=== PATIENT | female | born 1930 | race Caucasian/White ===

== ENCOUNTER 2020-01-22 05:07 | Inpatient (IN) | payer OTHER ==
[~2020-01-22] VITALS: Ht 160 cm; Wt 70.0 kg
[2020-01-22 05:08] VITALS: BP 77/52
[2020-01-22 05:27] LABS: ABSOLUTE NEUTROPHILS 9.9 thou/uL (1.4-8.2); BASOPHILS 0.4 % (0.0-2.0); HEMATOCRIT 39.5 % (37.0-47.0); LYMPHOCYTES 3.5 % (24.0-44.0); MCV 87.9 fL (80.0-100.0); MONOCYTES 6.1 % (1.0-8.0); PLATELET COUNT 222 thou/uL (150-400); RDW 14.3 % (10.5-14.5)
[2020-01-22 05:45] LABS: URINE BLOOD 1+ (Negative); URINE CLARITY CLOUDY; URINE COLOR YELLOW; URINE GLUCOSE-RANDOM* NEGATIVE (Negative); URINE KETONES TRACE (Negative); URINE NITRITE-REFLEX NEGATIVE (Negative); URINE PROTEIN (DIPSTICK) 2+ (Negative); URINE SPECIFIC GRAVITY >= 1.030 (1.005-1.035)
[2020-01-22 05:47] LABS: CALCIUM 8.7 mg/dL (8.5-10.1); CREATININE 1.8 mg/dL (0.6-1.0); POTASSIUM 3.5 mmol/L (3.5-5.1)
[2020-01-22 05:53] LABS: ALBUMIN 2.7 g/dL (3.4-5.0); DIRECT BILIRUBIN 0.5 mg/dL (<0.1-0.2); TOTAL BILIRUBIN 0.9 mg/dL (0.2-1.0); TOTAL PROTEIN 6.5 g/dL (6.4-8.2)
[2020-01-22 06:02] LABS: URINE LEUKOCYTES-REFLEX 2+ (Negative)
[2020-01-22 06:03] LABS: ICTOTEST (BILI CONFIRMATORY) ND (Negative)
[2020-01-22 06:04] LABS: URINE BILIRUBIN 2+ (Negative)
[2020-01-22] MEDS ORDERED: VITAMIN D32400 UNIT/ PO (06:08)
[2020-01-22 06:11] LABS: BACTERIA-REFLEX >30 Many /HPF (None Seen); CASTS None Seen /LPF (None Seen); SQUAMOUS 4-10 Moderate /LPF (0-3); URINE WBC-REFLEX >25 Many /HPF (0-5)
[2020-01-22 06:12] LABS: CRYSTALS None Seen /LPF (None Seen); URINE RBC 0-2 Rare /HPF (0-2); WBC CLUMPS Packed (None Seen)
--- NOTE | 2020-01-22 07:26 | EKG ---
[facility] [place] [facility] [place] [address] ELECTROCARDIOGRAM REPORT Name: CARLOS VALVERDERoxi Coto Room #: REG [facility]#: [id number] Admission: 01/22/20 Attend Phys: Discharge: Date of : [birth year] Report #: [id number] THIS REPORT FOR: cc: Lawanda Smith MD, Ramilo MD Santiago,Allen [facility] ~ THIS REPORT FOR: //name// [facility] [place] [facility] ED Test Date: 2020-01-22 Test Time: 05:31:20 Pat Name: ZECHARIAH VALVERDE Department: Room: Gender: F Stationary Engineer: [place] [id number] : 1930 Requested By: Renetta Nielsen Order Number: [id number] MD: Allen Abad Measurements Intervals [place] Rate: 87 P: -17 TN: 171 QRS: -23 QRSD: 106 T: 18 QT: 396 QTc: 477 Interpretive Statements Sinus rhythm Atrial premature complex Borderline left axis deviation Borderline low voltage, extremity leads Borderline repolarization abnormality No previous ECG available for comparison Electronically Signed On 01-22-2020 7:25:59 PROMOTIONAL REPRESENTATIVE by Allen Abad [email or web address] <ELECTRONICALLY SIGNED> By: Allen Abad MD, FACC 01/22/20 0725 0 0 Allen Abad MD, FAC /EPI
[2020-01-22 07:53] LABS: LARGE PLATELETS FEW; PLATELET ESTIMATE NORMAL
[2020-01-22 10:17] LABS: TSH 4.138 uIU/mL (0.358-3.740)
[2020-01-22 10:49] LABS: FOLIC ACID 21.8 ng/mL (8.6-58.9)
[2020-01-22 17:25] VITALS: BP 114/70
--- NOTE | 2020-01-23 04:49 | NUR ---
Talked with pretty Pantoja to update her regarding status of pt
[2020-01-23 05:49] LABS: ABSOLUTE NEUTROPHILS 7.9 thou/uL (1.4-8.2); BASOPHILS 0.1 % (0.0-2.0); HEMATOCRIT 34.9 % (37.0-47.0); HEMOGLOBIN 11.5 gm/dL (12.0-15.0); LYMPHOCYTES 5.8 % (24.0-44.0); MCH 29.1 pg (26.0-34.0); MCV 88.3 fL (80.0-100.0); MONOCYTES 4.6 % (1.0-8.0); PLATELET COUNT 155 thou/uL (150-400); POLYS 89.5 % (36.0-66.0); RBC 3.96 mil/uL (4.20-5.00); RDW 14.4 % (10.5-14.5); WBC 8.9 thou/uL (4.0-11.0)
[2020-01-23 06:11] LABS: CALCIUM 8.4 mg/dL (8.5-10.1); CREATININE 1.1 mg/dL (0.6-1.0); MAGNESIUM 1.9 mg/dL (1.8-2.4); POTASSIUM 3.5 mmol/L (3.5-5.1)
[2020-01-23 16:16] VITALS: BP 130/74
[2020-01-23 16:36] VITALS: BP 137/74
[2020-01-23 17:38] VITALS: BP 104/65
--- NOTE | 2020-01-23 19:03 | NUR ---
PATIENT ADMITTED TO UNITT A THIS TIME. SHE IS CONFUSED AND OBSESSED WITH SOMEONE FINDIND HER CANE. EASILY REDIRECTED. KEEPS TAKING OFF TELE STRIPS. WILL CONT WITH PLAN OF CARE.
[2020-01-23 20:25] VITALS: BP 111/67
[2020-01-24 00:33] VITALS: BP 112/74
[2020-01-24 05:15] VITALS: BP 138/83
--- NOTE | 2020-01-24 06:37 | NUR ---
PT REMOVED TELE MULTIPLE TIMES OVERNIGHT. PT ALSO REMOVED IV'S OVERNIGHT. REPLACED IV AND TELE PATCHES AND CABLES. PT WAS PLACED IN RESTRAINTS DUE TO REMOVING MONITORING EQUIPMENT AND IV'S FOR SAFETY REASONS. INTERVENTIONS AND DOCUMENTATION COMPLETED. PT STATES SHE WANTS TO GO BACK TO HER ROOM AT [facility]. NO OTHER ISSUES AND POC IN PLACE WITH IVF/IVPB.
[2020-01-24 08:32] VITALS: BP 120/80
[2020-01-24 08:53] LABS: HEMOGLOBIN 13.2 gm/dL (12.0-15.0); MCH 28.5 pg (26.0-34.0); MCHC 32.1 g/dL (28.0-37.0); MCV 88.8 fL (80.0-100.0); RBC 4.62 mil/uL (4.20-5.00); WBC 12.8 thou/uL (4.0-11.0)
[2020-01-24 09:14] LABS: CALCIUM 9.3 mg/dL (8.5-10.1); CREATININE 1.2 mg/dL (0.6-1.0); POTASSIUM 3.7 mmol/L (3.5-5.1)
[2020-01-24 10:21] LABS: ALBUMIN 2.9 g/dL (3.4-5.0); DIRECT BILIRUBIN 0.3 mg/dL (<0.1-0.2); TOTAL BILIRUBIN 0.5 mg/dL (0.2-1.0)
[2020-01-24 12:14] VITALS: BP 106/68
--- NOTE | 2020-01-24 13:13 | NUR ---
Patient admits from [facility] post [facility]. Patient also COVID positive. Facility and family aware. Patient is ltc resident of [facility]. Sp with family who reports patient likely will need rehab/skilled care upon dc. Patient with some confusion. Family aware. Discussed with [facility] may not be in network with [facility] for post acute care.
[2020-01-24 16:46] VITALS: BP 118/80
--- NOTE | 2020-01-24 19:07 | NUR ---
ASSUMED PATIENT CARE AT 0700. ALERT TO SELF. CONFUSED, OFF RESTRAINT AT 1000. VSS. AFEBRILE. SOLWLY TOWARDS POC GOALS.
[2020-01-24 19:40] VITALS: BP 111/64
--- NOTE | 2020-01-24 23:13 | NUR ---
PT RESTLESS PULLING ON GOWN, SHEETS TELE BOX. KICKING LEGS, REPOSITIONING IN BED. PROVIDER CALLED AND PRN PROVIDED. PTS IV INFILTRATED. TWO ATTEMPTS BY NURSE NOT SUCCESSFUL. PROVIDER NOTIFIED. WILL HAVE OTHER STAFF ATTEMPT RESTART. PT RECIEVED PRN HALDOL AND LOVENOX. PT ASKING TO TAKE THE CAR OUT. PT HAS INCREASED RR BUT IS ABLE TO BE VERBALLY REDIRECTED TO RELAX AND SLOW BREATHING. O2 SAT 98 AND 94%. BED ALARM ON. PT REMAINS INCONTINENT OF URINE.
--- NOTE | 2020-01-25 01:18 | NUR ---
PT RESTLESS ROLLING SIDE TO SIDE IN BED KICKING HER LEGS, PULLING ON SHEETS AND GOWN. TELE MONITOR PLACED ON PTS BACK SINCE SHE REMOVED IT 3 TIMES AT THE BEGINNING OF THE SHIFT.
--- NOTE | 2020-01-25 02:46 | NUR ---
PT CONTINUES TO ASK FOR ADDITIONAL MEDICATION TO ASSIST WITH HER SLEEPING. PROVIDER UPDATED.
[2020-01-25 06:09] LABS: ALBUMIN 2.6 g/dL (3.4-5.0); CALCIUM 9.3 mg/dL (8.5-10.1); CREATININE 1.1 mg/dL (0.6-1.0); DIRECT BILIRUBIN 0.2 mg/dL (<0.1-0.2); PHOSPHORUS 2.5 mg/dL (2.5-4.9); POTASSIUM 3.5 mmol/L (3.5-5.1); TOTAL BILIRUBIN 0.6 mg/dL (0.2-1.0)
--- NOTE | 2020-01-25 06:19 | NUR ---
PT WAS SATURATING 86% WITH BIPAP ON WHILE ASLEEP. PT AWAKENED, ENCOURAGED TO SIT UP ENGAGED WITH STAFF AND SATURATION INCREASED TO 95%. RESPIRATORY UPDATED.
[2020-01-25 07:39] VITALS: BP 136/66
[2020-01-25 10:58] VITALS: BP 118/73
--- NOTE | 2020-01-25 11:59 | HC ---
[facility] [place] [address] CONSULTATION Name: ZECHARIAH VALVERDE Room #: 352-P ADM IN M.R.#: [id number] Admission: 01/22/20 Attend Phys: Benjy Huffman MD Discharge: Date of : [birth year] Report #: [id number] THIS REPORT FOR: cc: Lawanda Smith MD, Ramilo MD Barry,Reid Barron MD ~ DATE OF SERVICE: 01/23/2020 INFECTIOUS DISEASE CONSULTATION ATTENDING PHYSICIAN: Dr. Huffman. REASON FOR EVALUATION: Complicated urinary tract infection. COVID positive. HISTORY OF SUBJECTIVE: Chart reviewed, the patient examined. This is an 89-year-old with very limited medical history, although it certainly raises question of some early dementia, who apparently fell out of her bed at some point while in the facility overnight, was brought to the Emergency Room. She had marked pyuria on urinalysis. CPK was elevated. Initial COVID antigen testing was negative; however, the PCR was positive and the chest x-ray showed ground-glass. CT of the head was otherwise unremarkable. She is unable to give too much details of history. She is quite confused at this point. She was found to be borderline hypoxemic; however, refuses to wear supplemental oxygen at this point. ALLERGIES: None known. MEDICATIONS: Currently include cyanocobalamin, vancomycin, famotidine, heparin, Zosyn, methylprednisolone, acetaminophen, p.r.n. ondansetron. PAST MEDICAL HISTORY: History of reflux, osteoarthritis, apparently history of varicella zoster as well. SOCIAL HISTORY: Uncertain. FAMILY HISTORY: Not available. REVIEW OF SYSTEMS: Not reliably obtained. PHYSICAL EXAMINATION: GENERAL: She is trying to get out of bed. She is quite confused. She appears somewhat chronically ill and undernourished. She is in gzgn-my-xtrrviaj distress. VITAL SIGNS: Temperature 99, pulse 62, respirations 19, blood pressure 114/66. [facility] [address] [place] [address] CONSULTATION Name: ZECHARIAH VALVERDE Room #: [address] [place] [address]#: [id number] Admission: 01/22/20 Attend Phys: Benjy Huffman MD Discharge: Date of : [birth year] Report #: [id number] Reportedly, saturations 89-90% on room air. HEENT: Normocephalic. Extraocular muscles intact. NECK: Supple. LUNGS: Few scattered coarse breath sounds. HEART: Regular. Borderline bradycardic. I do not appreciate a murmur. ABDOMEN: Soft, nontender, nondistended. EXTREMITIES: No cyanosis. GENITOURINARY AND RECTAL: Deferred. LABORATORY DATA: Initial electrolytes, sodium 137, potassium 3.5, chloride 102, bicarbonate is 22, anion gap of 13, BUN and creatinine 19 and 1.8, glucose of 119. LFTs borderline elevated AST of 42, ALT of 18, albumin of 2.7, total protein 62.5. CPK total of 467. Chest x-ray, peripheral ground-glass opacities present throughout the entire right lung and left upper lobe. Urinalysis, marked pyuria with greater than 25 white cells. Lactic acid of 2.8 initially, repeat was 1.7. Procalcitonin 0.24. Initial coronavirus antigen was negative. PCR positive. Vitamin D 25-hydroxy total was 46.2, in the normal range of 3200. Blood cultures sterile thus far. Urine culture with growth of greater than 10-30 gram-negative rods identified as Escherichia coli. ASSESSMENT AND PLAN: Complicated urinary tract infection and certainly it could explain a lot of her encephalopathy. Zosyn should give this reasonable coverage. We will await final susceptibilities. Also secondly, has pneumonitis again with a positive COVID PCR. I think given the borderline hypoxemia certainly at very tenuous at this point. We will start her on corticosteroids. We will start remdesivir and complete the planned 5-day course. Repeat creatinine was 1.1. Continue efforts to support with supplemental oxygen and see how she does clinically over the next 24-48 hours. Again, discussed with Dr. Zacarias. <ELECTRONICALLY SIGNED> By: Reid Nieves MD 01/25/20 1159 [id number] [id number] Reid Nieves MD /nt
--- NOTE | 2020-01-25 15:04 | NUR ---
NELLY reviewed chart and spoke with nursing and attending physician. Pt remains in Enhanced Isolation due to COVID-19. Pt is afebrile and not on O2. Pt is on IV abx and IV steroids. Pt is completing course of Remdesivir. NELLY faxed clinical/therapy updates to [facility] for review. No weekend discharge planned. Will need insurance authorization for post-acute placement. NELLY is following to assist as needed with discharge planning.
[2020-01-25 15:12] VITALS: BP 120/77
--- NOTE | 2020-01-25 17:48 | NUR ---
ASSUMED PATIENT CARE AT 0700. ALERT TO SELF. STARTED RESTLESS AFTER 5PM. REFUSED EAT ALL DAY. MAX ASSISTED. INCONTINUE URINE AND BM. VSS, AFEBRILR. NOT TOWARDS POC GOALS.
[2020-01-25 20:32] VITALS: BP 96/61
--- NOTE | 2020-01-26 01:10 | NUR ---
PT RESTING IN BED. LUNGS DIMINISHED, REMAINS INCONTINENT. BED ALARM ON. PT REPORTED TO NOT EAT ON DAY SHIFT. PT NOT RESISTIVE TO CARES THIS EVENING.
[2020-01-26 05:00] VITALS: BP 100/65
[2020-01-26 08:52] VITALS: BP 100/73
[2020-01-26 08:54] LABS: ALBUMIN 2.4 g/dL (3.4-5.0); CALCIUM 8.1 mg/dL (8.5-10.1); DIRECT BILIRUBIN 0.3 mg/dL (<0.1-0.2); PHOSPHORUS 2.6 mg/dL (2.5-4.9); POTASSIUM 3.6 mmol/L (3.5-5.1); TOTAL BILIRUBIN 0.6 mg/dL (0.2-1.0); TOTAL PROTEIN 5.6 g/dL (6.4-8.2)
[2020-01-26 16:41] VITALS: BP 121/81
[2020-01-26 19:11] VITALS: BP 111/73
--- NOTE | 2020-01-26 23:43 | NUR ---
PT RESTING IN BED. [facility] CONTACT. PT ANSWERS DIRECT QUESTIONS WITH ONE OR TWO WORDS. PT DECLINED WANTING TO WATCH TV. PT COMPLIANT WITH MEDS. PT OFFERED SNACK AND DECLINED STATING SHE DID NOT WANT ANY. DISCUSSED WITH PT THE NEED FOR NUTRITION TO REMAIN LIVING. PT SHOOK HER HEAD YES WHEN ASKED IF SHE WAS READY TO . LUNGS WHEEZE IN BASE, PALE SKIN TONE, BLE EDEMA. BED ALARM ON.
[2020-01-27 04:24] VITALS: BP 111/68
[2020-01-27 07:46] VITALS: BP 112/73
[2020-01-27 11:16] LABS: ALBUMIN 2.6 g/dL (3.4-5.0); DIRECT BILIRUBIN 0.4 mg/dL (<0.1-0.2); TOTAL BILIRUBIN 0.8 mg/dL (0.2-1.0)
[2020-01-27 16:04] VITALS: BP 123/78
--- NOTE | 2020-01-27 18:02 | NUR ---
ASSUMED CARE OF PT AT SHIFT CHANGE. ASSESSMENT CHARTED. MEDS GIVEN PER MAR WITH PUDDING. PT A&OX4, NO C/O PAIN OR SOA. DIET UPGRADED TO CLEAR LIQUIDS PT IS MORE ALERT. RESTRAINTS DC'D, COMPLIANT WITH MOST INSTRUCTIONS. INCONTINENT WITH TWO LOOSE STOOLS. WILL CONTINUE TO MONITOR AND FOLLOW POC.
[2020-01-27 20:24] VITALS: BP 118/74
--- NOTE | 2020-01-28 02:12 | NUR ---
PT RESTING IN BED. LUNGS DIMINSHED, BLE ANKLE EDEMA. REMAINS INCONTINENT B&B. COMPLIANT WITH MEDS. DECLINING FLUIDS. [facility] CONTACT, SIMPLE STATEMENT INTERACTIONS.
[2020-01-28 03:49] VITALS: BP 125/79
[2020-01-28 07:39] VITALS: BP 122/75
[2020-01-28] MEDS ORDERED: CEFDINIR300 MG PO (09:45)
[2020-01-28 11:22] VITALS: BP 105/68
[2020-01-28 15:19] VITALS: BP 95/58
--- NOTE | 2020-01-28 15:43 | NUR ---
PRIMETIME ROUNDS: VALENTÍN, DIRECTOR, WILL HAVE YADIRA CANDELARIO, SUBMIT FOR AUTH SINCE PT HAS [employer].
--- NOTE | 2020-01-28 18:23 | NUR ---
PT ORIENTED TO SELF, SLIGHT HABEMATOLEL, PROB RELATED TO MASKED SOUNDS, ATE ALL OF MAGIC PUDDING AND MOST OF BREAKFAST, VERY PLEASANT, INCONTINENT ONCE TODAY, PT AND LINENS CHANGED, BLADDER SCAN AT 1700 SHOWED 300CC RETAINED, PT DECLINED TRYING TO SIT ON BSC STATING, "I DON'T WANT TO TRY RIGHT NOW."
[2020-01-28 19:51] VITALS: BP 96/64
--- NOTE | 2020-01-29 07:32 | NUR ---
ASSUMED PT CARE AROUND 1930. AXOX1. FOLLOWS SIMPLE COMMANDS. VSS. UA SAMPLES REMAINS UNCOLLECTED PER AD OPERATIONS INTERN NOT TO STRAIGHT CATH HER D/T HER INCONTINENCE. TO CHECK WITH ATTENDING IF HE WANTS SAMPLE FROM STRAIGHT CATH. ENDORSED TO AM RN. NO S/S ACUTE DISTRESS NOTED OR REPORTED AT THIS TIME. CARE TRANSFERRED TO AM RN.
[2020-01-29 07:43] VITALS: BP 103/61
[2020-01-29 11:31] VITALS: BP 106/69
--- NOTE | 2020-01-29 11:47 | NUR ---
PT ALERT AND ORIENTED TIMES TWO. VSS. PT DENIES PAIN/SOA. PT TOLERATES MEDS AND MEALS. PLANS TO DISCHARGE TODAY. PT PRORESSING TOWRADS POC GOALS.
--- NOTE | 2020-01-29 14:00 | NUR ---
NELLY reviewed chart and spoke with nursing. Pt remains in Enhanced Isolation due to COVID-19. Pt is afebrile and not requiring O2. Pt is medically stable for discharge back to [facility] pending insurance authorization. NELLY discussed case with aashish. Info has not yet been submitted to [facility] for SNF authorization. product planner to fax info to [facility] and [facility]. NELLY spoke with pt's family, Cammy and Scarlett, to provide update and discuss discharge plan. Per Scarlett, pt will likely not participate with therapy. They prefer pt returns to [facility] as manager intermediate care with restorative therapy. [facility] is also not in-netowrk with pt's insurance. Pt would have to go to an alternate facility for skilled services. Pt's family would like for pt to return to [facility] and not have to go to an alternate facility. Pt's family wanted to know if pt will be retested for COVID prior to discharge and if not, why not. Pt's family also wanted to know if pt will have to be in isolation when she returns to the facility. NELLY left voice message for Delles in admissions at [facility]. Chart copy requested. NELLY is following to assist as needed with discharge planning.
[2020-01-29 15:26] VITALS: BP 117/72
--- NOTE | 2020-01-29 16:28 | NUR ---
FAXED REFERRAL TO [facility] RECEIVED CONFIRMATION AND LEFT MSG WITH ANKITA IN ADM. ALSO FAXED REFERRAL TO [facility] FOR AUTH RECEIVED CONFIRMATION. DP TO FOLLOW.
[2020-01-29 19:13] VITALS: BP 113/74
[2020-01-29 19:40] VITALS: BP 123/72
--- NOTE | 2020-01-29 21:15 | NUR ---
PT AWAKE ALERT RESTING IN BED, DECLINED WANTING TV ON OR FLUIDS. PT ASKED IF IT WAS NIGHT TIME. PT COMPLIANT WITH MEDICATIONS AND VS. BED ALARM ON. PT REMAINS PALE, INCONTIENENT.
[2020-01-30 03:06] VITALS: BP 141/82
[2020-01-30 07:21] VITALS: BP 115/67
--- NOTE | 2020-01-30 07:34 | NUR ---
PER CASE MANAGEMENT, PT. FAMILY WISHES PT. TO RETURN TO LTC AT DISCHARGE, AND DO NOT WISH FOR PT. TO RECEIVE THERAPY. OT WILL DISCHARGE PT. PER FAMILY REQUEST.
--- NOTE | 2020-01-30 09:55 | NUR ---
SPOKE WITH [facility] RECEIVED AUTH#[id number] FROM 01/29/20-02/04/20 THEN REVIEW. OBSTETRICS TEACHER AT [facility] IS GARY DIAZ. SPOKE WITH ZAC MERCHANT) AT [facility] THEY ARE ABLE TO ACCEPT PT BACK TODAY.
--- NOTE | 2020-01-30 12:21 | NUR ---
PT DISCHARGING TODAY TO [facility] FOR SKILLED STAY THEN TRANSITION BACK TO LTC FAXED DC ORDERS/SUMMARY TO FACILITY SPOKE WITH DARLINE IN ADM SHE RECEIVED ORDERS. TRANSPORT ARRANGED WITH [employer] [facility] FOR [id number] TODAY. NOTIFIED FACILITY AND PT'S FAMILY (AVNI/TAQUERIA OF DC AND TIME OF TRANSPORT. UNIT NOTIFIED AND CHART COPY PER US. RN TO CALL REPORT TO [phone].
--- NOTE | 2020-01-30 13:35 | NUR ---
DISCHARGE NOTE: SW reviewed chart and spoke with nursing and attending physician. Pt remains in Enhanced Isolation due to COVID-19. Pt is medically stable for discharge back to [facility] today. event planner coordinated and notified pt's family. Authorization for SNF obtained for pt to receive skilled services at [facility]. Stretcher van transportation scheduled for [id number]. No additional SW needs identified at this time, but is available to assist should needs arise.
--- NOTE | 2020-01-30 14:02 | NUR ---
PT AOX2, VSS, NO C/O OR S/S OF PAIN OR DISCOMFORT. PT REMAINS ON RA, INCONTENENT OF B&B. FALL PRECAUTIONS IN PLACE. [facility]SPOR[facility]AN.
== END 2020-01-30 13:20 | DRG 871 ==
LOC: ER 05:07 → EROBS 09:28 → 3W 09:28
PROVIDERS: Emergency Medicine; Internal Medicine Pulmonary Disease; Nurse Practitioner; Specialist; ADMIT Hospitalist; ATTEND Hospitalist
PROC: XW033E5 Introduction of Remdesivir Anti-infective into Peripheral Vein, Percutaneous Approach, New Technology Group 5 (ICD-10-PCS; principal; 2020-01-23)
DX: A41.51 Sepsis due to Escherichia coli [E. coli] (principal); U07.1 COVID-19; J96.01 Acute respiratory failure with hypoxia; N17.0 Acute kidney failure with tubular necrosis; E43 Unspecified severe protein-calorie malnutrition; J12.89 Other viral pneumonia; R65.21 Severe sepsis with septic shock; N39.0 Urinary tract infection, site not specified; M62.82 Rhabdomyolysis; F03.90 Unspecified dementia, unspecified severity, without behavioral disturbance, psychotic disturbance, mood disturbance, and anxiety; E53.8 Deficiency of other specified B group vitamins; K21.9 Gastro-esophageal reflux disease without esophagitis; I95.9 Hypotension, unspecified; Z66 Do not resuscitate; M19.90 Unspecified osteoarthritis, unspecified site; B96.20 Unspecified Escherichia coli [E. coli] as the cause of diseases classified elsewhere; N18.9 Chronic kidney disease, unspecified; Z79.899 Other long term (current) drug therapy; Z68.27 Body mass index [BMI] 27.0-27.9, adult; Z78.1 Physical restraint status
CPT/HCPCS: 10080; 10879